=== PATIENT | male | born 1970 | race Hispanic/Latino ===

== ENCOUNTER 2018-11-11 19:44 | Inpatient (IN) | payer OTHER ==
--- NOTE | 2018-11-11 20:12 | ED PDOC ---
HPI: Headache Time Seen by Provider: 11/11/18 20:05 Chief Complaint (Nursing): Weakness/Neurological Deficit Chief Complaint (Provider): Right sided headache History Per: Patient History/Exam Limitations: no limitations Onset/Duration Of Symptoms: Hrs Current Symptoms Are (Timing): Still Present Quality: "Pain" Preceeding Symptoms: Visual Disturbances Associated Symptoms: Blurred Vision. denies: Photophobia, Nausea, Vomiting, Extremity Weakness Additional History Per: Patient Additional Complaint(s): 48yo male with history of migraines, with last episode 10 years ago, reports a gradual right sided headache radiating to his right neck. Patient reports blurry vision while on his way here, which has now resolved. He denies any extremity weakness, numbness or tingling. He took Advil with no relief of symptoms. Patient states he smokes and that he had 2 drinks this evening, states this is not unusual. No nausea, vomiting, or other complaints. NIHSS Stroke Scale - Date/Time Evaluation Performed Date Performed: 11/11/18 Time Performed: 20:10 When Was NIHSS Performed: Baseline - How Severe is the Stroke Level of Consciousness: 0=Alert LOC to Questions: 0=Both comments correct LOC to commands: 0=Obeys both correctly Best Gaze: 0=Normal Visual: 0=No visual loss Facial: 0=Normal Motor Arm - Left: 0=No drift Motor Arm - Right: 0=No drift Motor Leg - Left: 0=No drift Motor Leg - Right: 0=No drift Limb Ataxia: 0=Absent Sensory: 0=Normal Best Language: 0=No aphasia Dysarthia: 0=Normal articulation Extinction & Inattention (Neglect): 0=Normal, no object Score: 0 Past Medical History Reviewed: Historical Data, Nursing Documentation, Vital Signs Vital Signs: Last Vital Signs Temp 97.9 F 11/11/18 19:49 Pulse 70 11/11/18 19:49 Resp 16 11/11/18 19:49 BP 150/90 11/11/18 19:49 Pulse Ox 97 11/11/18 19:49 Primary Care Provider: Dillan Valenzuela - Medical History PMH: Migraine (last 10 years ago) - Surgical History Surgical History: Tonsillectomy - Family History Family History: States: No Known Family Hx - Social History Current smoker - smoking cessation education provided: Yes Alcohol: Occasional Drugs: Denies - Home Medications Home Medications: Ambulatory Orders Medication Instructions Recorded No Known Home Med 11/12/18 - Allergies Allergies/Adverse Reactions: Allergies Allergy/AdvReac Type Severity Reaction Status Date / Time No Known Allergies Allergy Verified 11/11/18 19:49 Review of Systems ROS Statement: Except As Marked, All Systems Reviewed And Found Negative Constitutional: Negative for: Weakness Eyes: Positive for: Vision Change (now resolved) Gastrointestinal: Negative for: Nausea Musculoskeletal: Positive for: Neck Pain (right sided) Neurological: Positive for: Numbness (right sided facial numbness), Headache (right sided). Negative for: Weakness Physical Exam - Reviewed Nursing Documentation Reviewed: Yes Vital Signs Reviewed: Yes - Physical Exam Appears: Positive for: Non-toxic Head Exam: Positive for: ATRAUMATIC, NORMAL INSPECTION, NORMOCEPHALIC Skin: Positive for: Normal Color Eye Exam: Positive for: EOMI, PERRL Neck: Positive for: Normal, Painless ROM, Supple Cardiovascular/Chest: Positive for: Regular Rate, Rhythm. Negative for: Tachycardia Respiratory: Positive for: Normal Breath Sounds. Negative for: Respiratory Distress Gastrointestinal/Abdominal: Positive for: Soft Back: Positive for: Normal Inspection Extremity: Positive for: Normal ROM. Negative for: Pedal Edema, Deformity Neurological/Psych: Positive for: Awake, Alert, Normal Tone, Symmetric/Intact Strength, Oriented (x 3), technical support agent II-XII (intact). Negative for: Motor/Sensory Deficits, Facial Droop - Laboratory Results Result Diagrams: 11/11/18 20:10 11/11/18 20:10 - ECG O2 Sat by Pulse Oximetry: 97 (RA) Pulse Ox Interpretation: Normal Medical Decision Making Medical Decision Making: Impression: Headache Plan: -- Labs -- CT Head w/o contrast -- CTA Head and Neck -- Morphine 2mg IV -- Urinalysis -- EKG EXAM: CT Head Without IV contrast. CLINICAL HISTORY: Rt sided headache TECHNIQUE: Axial computed tomography images of the head/brain without intravenous contrast. COMPARISON: None provided. FINDINGS: BRAIN: No acute intraparenchymal hemorrhage. No mass lesion. No CT evidence for acute territorial infarct. No midline shift or extra-axial collections. VENTRICLES: No hydrocephalus. ORBITS: The orbits are unremarkable. SINUSES AND MASTOIDS: The paranasal sinuses and mastoid air cells are clear. BONES: 5 mm lytic lesion is present in the right frontal calvarium. Consider further workup with MRI of the brain pre-and post contrast as well as CT of the chest abdomen pelvis with IV contrast. SOFT TISSUES: Unremarkable. IMPRESSION: No acute intracranial abnormality. 5 mm lytic lesion is present in the right frontal calvarium. Consider further workup with MRI of the brain pre-and post contrast as well as CT of the chest abdomen pelvis with IV contrast. Electronically signed on November 11, 2018 8:39:09 PM EDT by: Dillan Ibrahim M.D., M.B.A., Certified By [employer] Trained MRI and CT Specialist EXAM: CTA Head and Neck with Intravenous Contrast. CLINICAL HISTORY: Rt sided headache TECHNIQUE: Axial CTA images of the head and neck performed with intravenous contrast. MIP reconstructed images were created and reviewed. 496.94 mGy-cm CONTRAST: With; [id number] 95ml was injected intravenously without incident. COMPARISON: None provided. FINDINGS: VASCULATURE: NECK: COMMON CAROTID ARTERIES No significant canal stenosis. No dissection or occlusion. EXTERNAL CAROTID ARTERIES Patent. NECK: INTERNAL CAROTID ARTERIES No stenosis by NASCET criteria. No dissection or occlusion. VERTEBRAL ARTERIES No significant canal stenosis. No dissection or occlusion. HEAD: ANTERIOR CEREBRAL ARTERIES No significant stenosis. No occlusion. No aneurysm. MIDDLE CEREBRAL ARTERIES No significant stenosis. No occlusion. No aneurysm. POSTERIOR CEREBRAL ARTERIES No significant stenosis. No occlusion. No aneurysm. BASILAR ARTERY No significant stenosis. No occlusion. No aneurysm. OTHER: 4 x 2.5 cm heterogeneously enhancing left thyroid lobe mass is seen demonstrating internal nodular components. This is status for thyroid malignancy. Surgical consultation is recommended. SOFT TISSUES No acute finding. BONES No acute osseous abnormality. IMPRESSION: 4 x 2.5 cm heterogeneously enhancing left thyroid lobe mass is seen demonstrating internal nodular components. This is status for thyroid malignancy. Surgical consultation is recommended. Unremarkable CTA of the head and neck otherwise. Electronically signed on November 11, 2018 10:12:17 PM EDT by: Dillan Ibrahim M.D., M.B.A., Certified By [employer] Trained MRI and CT Specialist CT OF THE CHEST ABDOMEN AND PELVIS WITH IV CONTRAST CLINICAL HISTORY: Abnormal ct head, lytic lesion calvarium TECHNIQUE: Axial and reformatted sagittal and coronal images of the chest, abdomen and pelvis obtained after bolus IV contrast administration. FINDINGS: 2.6x1.9 cm heterogeneous hypodense nodule of the left thyroid lobe. Mild right lateral deviation of the trachea. No secondary tracheal narrowing. Bilateral basilar subsegmental atelectatic pulmonary changes. Normal enhancement of the main pulmonary artery and right and left pulmonary arteries. Normal enhancement of the bilateral peripheral pulmonary arteries. There is no demonstrated pulmonary embolism. Normal thoracic aorta and visualized great vessels. There is no demonstrated aortic dissection. Normal heart and pericardium. Normal mediastinum. Normal hilar regions. Normal visualized trachea and bronchi. Normal pleura. Normal chest wall structures. Normal liver. Normal gallbladder and extrahepatic biliary system. Normal spleen. Normal pancreas. Normal bilateral adrenal glands. Normal size of the right kidney. There is no right renal mass. There are no right renal calculi. There is no right hydronephrosis. Normal visualized right ureter. Normal size of the left kidney. There is no left renal mass. There are no left renal calculi. There is no left hydronephrosis. Normal visualized left ureter. Normal visualized stomach. Normal small intestine. Uncomplicated diverticulosis of the colon. The appendix is visualized and appears normal. There is no demonstrated peritoneal fluid. Normal abdominal aorta. Normal inferior vena cava. Normal retroperitoneum. Normal urinary bladder. There is no pelvic mass lesion or lymphadenopathy. There is no pelvic fluid. Mild prostatomegaly. Bilateral fat containing inguinal hernias without incarceration. Grade 1 anterolisthesis of L5 on S1 with associated moderate focal spondylosis. IMPRESSION: No demonstrated pulmonary embolism or arterial dissection. 2.6x1.9 cm heterogeneous hypodense nodule of the left thyroid lobe. Ultrasound guided fine needle aspiration is suggested. Mild right lateral deviation of the trachea. No secondary tracheal narrowing. Bilateral basilar subsegmental atelectatic pulmonary changes. Electronically signed on November 12, 2018 3:02:23 AM EDT by: Shaq Worrell M.D., Certified by [employer], Neuroradiology Scribe Attestation: Documented by Padmini Castañeda acting as a scribe for Tova Parks MD Provider Scribe Attestation: All medical record entries made by the Scribe were at my direction and personally dictated by me. I have reviewed the chart and agree that the record accurately reflects my personal performance of the history, physical exam, medical decision making, and the department course for this patient. I have also personally directed, reviewed, and agree with the discharge instructions and disposition. Disposition - Clinical Impression Clinical Impression: Bone lesion, Thyroid mass - Patient ED Disposition Is Patient to be Admitted: Yes - Disposition Disposition Time: 00:00 Condition: STABLE - Pt Status Changed To: Hospital Disposition Of: Inpatient - Admit Certification Admit to Inpatient:: After my assessment, the patient will require hospitalization for at least two midnights. This is because of the severity of symptoms shown, intensity of services needed, and/or the medical risk in this patient being treated as an outpatient. - POA Present On Arrival: None
[2018-11-11 20:34] LABS: BASO # 0.1 K/uL (0.0-0.2); BASO % 0.9 % (0.0-2.0); EOS # 0.1 K/uL (0.0-0.7); EOS % 1.5 % (0.0-4.0); LYMPH # 2.5 K/uL (1.0-4.3); LYMPH % 36.9 % (20.0-40.0); MEAN CELL VOLUME 87.5 fl (80.0-94.0); MEAN CORPUSCULAR HEMOGLOBIN 29.9 pg (27.0-31.0); MEAN CORPUSCULAR HGB CONC 34.1 g/dL (33.0-37.0); MEAN PLATELET VOLUME 8.8 fl (7.2-11.7); MONO # 0.5 K/uL (0.0-0.8); MONO % 7.2 % (0.0-10.0); NEUT # 3.6 K/uL (1.8-7.0); NEUT % 53.5 % (50.0-75.0); NRBC % 0.1 % (0.0-0.0); RBC 5.02 Mil/uL (4.40-5.90); RED CELL DISTRIBUTION WIDTH 12.9 % (11.5-14.5); WHITE BLOOD COUNT 6.8 K/uL (4.8-10.8)
[2018-11-11] MEDS ORDERED: Iodixanol 320 MG/ML 100 ML BOTTLE IV ONE (20:35)
[2018-11-11] MEDS ORDERED: Sodium Chloride 0.9% 50 ML IV ONE (20:36)
[2018-11-11 20:45] LABS: ALB/GLOB RATIO 1.5 (1.0-2.1); ALBUMIN 4.5 g/dL (3.5-5.0); ALT/SGPT 24 U/L (21-72); AST/SGOT 29 U/L (17-59); BLOOD UREA NITROGEN 9 mg/dl (9-20); GFR NON-AFRICAN AMERICAN > 60; PROTHROMBIN TIME 11.8 Seconds (9.8-13.1)
[2018-11-11 20:47] LABS: PARTIAL THROMBOPLASTIN TIME 32.6 Seconds (25.6-37.1)
[2018-11-11] MEDS ORDERED: Sodium Chloride 0.9% 1,000 ML IV STA (23:40)
[2018-11-12] MEDS ORDERED: Iodixanol 320 MG/ML 100 ML BOTTLE IV ONE (01:49)
[2018-11-12] MEDS ORDERED: Sodium Chloride 0.9% 50 ML IV ONE (01:49)
[2018-11-12 04:20] VITALS: RESP 18
[2018-11-12 07:58] VITALS: BP 128/79; PULSE 74; TEMP 98.6
[2018-11-12 10:19] LABS: T3 1.14 nmol/L (1.49-2.60)
--- NOTE | 2018-11-12 10:20 | CT ---
Date of service: 11/12/2018 PROCEDURE: CT Chest, Abdomen and Pelvis with intravenous contrast HISTORY: Abnormal CT head, lytic lesion calvarium COMPARISON: November 11, 2018.. CT head without contrast. TECHNIQUE: IV dose administered: 95 cc Visipaque 320. Radiation dose: Total exam DLP = 1013.03 mGy-cm. This CT exam was performed using one or more of the following dose reduction techniques: Automated exposure control, adjustment of the mA and/or kV according to patient size, and/or use of iterative reconstruction technique. FINDINGS: CT CHEST WITH CONTRAST: LUNGS: Right lower lobe infiltrate, basilar segment. Less pronounced atelectatic changes left lung base. No pulmonary nodules or masses detected. MEDIASTINUM: Unremarkable. Normal caliber aorta and pulmonary arterial trunk. No aortic dissection. Normal size heart. LYMPH NODES: Unremarkable. PLEURA: Unremarkable. No pneumothorax. No pleural fluid. BONES: Unremarkable. OTHER FINDINGS: Cystic nodule left thyroid lobe. Although incompletely visualize, this measures 1.3 x 2.3 cm. Elective thyroid ultrasound recommended. CT ABDOMEN AND PELVIS: LIVER: Unremarkable. No gross lesion or ductal dilatation. Incidental finding(s): 2.3 cm simple cyst left hepatic lobe, segment 2. GALLBLADDER AND BILE DUCTS: Unremarkable. PANCREAS: Unremarkable. No gross lesion or ductal dilatation. SPLEEN: Unremarkable. ADRENALS: Unremarkable. No mass. KIDNEYS AND URETERS: Unremarkable. No hydronephrosis. No solid mass. VASCULATURE: No aortic atherosclerotic calcification or mural plaque present. Unremarkable. No aortic aneurysm. BOWEL: Constipation without fecal impaction or obstruction. APPENDIX: A normal appendix is visualized in it's entirety. PERITONEUM: Unremarkable. No free fluid. No free air. LYMPH NODES: Unremarkable. No enlarged lymph nodes. BLADDER: Unremarkable. REPRODUCTIVE: Unremarkable. BONES: No acute fracture. OTHER FINDINGS: None. IMPRESSION: Bilateral lower lobe infiltrates/atelectasis right greater than left. Indeterminate and incompletely visualize left thyroid nodule. Elective thyroid ultrasound recommended. Simple cyst lateral segment left hepatic lobe. Additional benign and/or incidental findings described above.
--- NOTE | 2018-11-12 11:25 | CP.PCM.CON ---
History of Present Illness - History of Present Illness History of Present Illness: General surgery consult note for Dr. Shae Headley, PGY-2 Pt seen/examined at bedside 48M w/PMH sig for migraines consulted for thyroid mass. Pt admitted to hospital due to right sided CONNELL yesterday after business meeting, with associated numbness and tingling of head/face and right eye blurriness/lacrimation. Denies decrease d strength of body, F & C, SOB, CP, neck pain, dysphagia, changes in weight, changes in bowel or bladder habits, other complaints. CT head/neck with findings of thyroid mass PMH: hx of migraines PSH; Denies All: NKDA SH: Admits to tobacco use - 1/2ppd x 30 yrs, ETOH use 5-10 drinks weekly, occas ional MJ use, no other illicit drug use PMD: Denies Review of Systems - Review of Systems All systems: reviewed and no additional remarkable complaints except - Constitutional Constitutional: absent: Chills, Fever - EENT Eyes: Blurred Vision, Change in Vision Ears: absent: Dizziness Nose/Mouth/Throat: Facial Pain. absent: Dysphagia, Mouth Pain, Sore Throat, Throat Swelling, Neck Mass - Cardiovascular Cardiovascular: absent: Chest Pain - Gastrointestinal Gastrointestinal: absent: Abdominal Pain - Genitourinary Genitourinary: absent: Change in Urinary Stream - Neurological Neurological: absent: Weakness - Psychiatric Psychiatric: absent: Change in Appetite Past Patient History - Past Medical History & Family History Past Medical History?: No - Past Social History Smoking Status: Current Some Days Smoker - CARDIAC Hx Cardiac Disorders: No - PULMONARY Hx Respiratory Disorders: No - NEUROLOGICAL Hx Neurological Disorder: Yes Hx Migraine: Yes (last 10 years ago) - HEENT Hx HEENT Problems: No - RENAL Hx Chronic Kidney Disease: No - ENDOCRINE/METABOLIC Hx Endocrine Disorders: No - HEMATOLOGICAL/ONCOLOGICAL Hx Blood Disorders: No - INTEGUMENTARY Hx Dermatological Problems: No - MUSCULOSKELETAL/RHEUMATOLOGICAL Hx Musculoskeletal Disorders: No Hx Falls: No - GASTROINTESTINAL Hx Gastrointestinal Disorders: No - GENITOURINARY/GYNECOLOGICAL Hx Genitourinary Disorders: No - PSYCHIATRIC Hx Psychophysiologic Disorder: No Hx Substance Use: No - SURGICAL HISTORY Hx Surgeries: Yes Hx Tonsillectomy: Yes - ANESTHESIA Hx Anesthesia: No Meds Allergies/Adverse Reactions: Allergies Allergy/AdvReac Type Severity Reaction Status Date / Time No Known Allergies Allergy Verified 11/11/18 19:49 Physical Exam - Constitutional Appears: Non-toxic, No Acute Distress - Head Exam Head Exam: ATRAUMATIC, NORMAL INSPECTION, NORMOCEPHALIC - Eye Exam Eye Exam: EOMI, Normal appearance - ENT Exam ENT Exam: Mucous Membranes Moist, Normal Exam - Neck Exam Neck exam: Positive for: Full Rom, Normal Inspection. Negative for: Lymphadenopathy, Tenderness, Thyromegaly - Respiratory Exam Respiratory Exam: Clear to Auscultation Bilateral, NORMAL BREATHING PATTERN. absent: Rales, Rhonchi, Wheezes, Respiratory Distress - Cardiovascular Exam Cardiovascular Exam: REGULAR RHYTHM, +S1, +S2 - GI/Abdominal Exam GI & Abdominal Exam: Normal Bowel Sounds, Soft. absent: Tenderness - Back Exam Back exam: NORMAL INSPECTION - Neurological Exam Neurological exam: Alert, CN II-XII Intact, Oriented x3 - Psychiatric Exam Psychiatric exam: Normal Affect, Normal Mood - Skin Skin Exam: Dry, Intact, Normal Color, Warm Results - Vital Signs Recent Vital Signs: Last Vital Signs Temp 98.6 F 11/12/18 07:57 Pulse 74 11/12/18 07:57 Resp 18 11/12/18 07:57 BP 128/79 11/12/18 07:57 Pulse Ox 96 11/12/18 07:57 - Labs Result Diagrams: 11/11/18 20:10 11/11/18 20:10 Labs: Laboratory Results - last 24 hr 11/11/18 11/11/18 11/11/18 20:08 20:10 20:10 WBC 6.8 RBC 5.02 Hgb 15.0 Hct 43.9 MCV 87.5 MCH 29.9 MCHC 34.1 RDW 12.9 Plt Count 266 MPV 8.8 Neut % (Auto) 53.5 Lymph % (Auto) 36.9 [place] % (Auto) 7.2 Eos % (Auto) 1.5 Baso % (Auto) 0.9 Neut # (Auto) 3.6 Lymph # (Auto) 2.5 [place] # (Auto) 0.5 Eos # (Auto) 0.1 Baso # (Auto) 0.1 PT INR APTT Sodium 139 Potassium 3.7 Chloride 101 Carbon Dioxide 26 Anion Gap 16 BUN 9 Creatinine 0.9 Est GFR ( Amer) > 60 Est GFR (Non-Af Amer) > 60 POC Glucose (mg/dL) 86 Random Glucose 82 Calcium 9.0 Total Bilirubin 0.9 AST 29 ALT 24 Alkaline Phosphatase 42 Total Protein 7.5 Albumin 4.5 Globulin 3.0 Albumin/Globulin Ratio 1.5 Thyroxine (T4) 7.60 Total T3 1.14 L TSH 3rd Generation 0.41 L 11/11/18 20:10 WBC RBC Hgb Hct MCV MCH MCHC RDW Plt Count MPV Neut % (Auto) Lymph % (Auto) [place] % (Auto) Eos % (Auto) Baso % (Auto) Neut # (Auto) Lymph # (Auto) [place] # (Auto) Eos # (Auto) Baso # (Auto) PT 11.8 INR 1.0 APTT 32.6 Sodium Potassium Chloride Carbon Dioxide Anion Gap BUN Creatinine Est GFR ( Amer) Est GFR (Non-Af Amer) POC Glucose (mg/dL) Random Glucose Calcium Total Bilirubin AST ALT Alkaline Phosphatase Total Protein Albumin Globulin Albumin/Globulin Ratio Thyroxine (T4) Total T3 TSH 3rd Generation Assessment & Plan - Assessment and Plan (Free Text) Assessment: 48M w/thyroid mass incidentally found on imaging Plan: T3 low - 1.14 TSH low - 0.41 T4 WNL- 7.6 Recommend U/S of thyroid Will need FNA for tissue diagnosis- can be done outpatient To follow up with Dr. Marin after FNA and U/S of thyroid done for further surgical planning Will DW Dr. Tomas Headley, PGY-2 - Date & Time Date: 11/12/18 Time: 10:15
--- NOTE | 2018-11-12 11:27 | CARD ---
APPROVED REPORT Date of service: 11/11/2018 EKG Measurement Heart [id number] <Conclusion> Sinus bradycardia Otherwise normal ECG
--- NOTE | 2018-11-12 12:40 | CT ---
Date of service: 11/11/2018 PROCEDURE: CT HEAD WITHOUT CONTRAST. HISTORY: R sided CONNELL COMPARISON: None available. TECHNIQUE: Axial computed tomography images were obtained through the head/brain without intravenous contrast. Radiation dose: Total exam DLP = 794.4 mGy-cm. This CT exam was performed using one or more of the following dose reduction techniques: Automated exposure control, adjustment of the mA and/or kV according to patient size, and/or use of iterative reconstruction technique. FINDINGS: HEMORRHAGE: No intracranial hemorrhage. BRAIN: No mass effect or edema. Vargas-white matter differentiation appears intact. Please note that MRI with diffusion imaging is more sensitive in the detection of acute ischemic event. VENTRICLES: No hydrocephalus. CALVARIUM: 5 mm lucent/lytic lesion within the right frontal calvarium. PARANASAL SINUSES: Unremarkable as visualized. No significant inflammatory changes. MASTOID AIR CELLS: Unremarkable as visualized. No inflammatory changes. OTHER FINDINGS: None. IMPRESSION: No acute intracranial pathology identified. 5 mm lucent/lytic lesion within the right frontal calvarium. Preliminary impression was provided by [place].
--- NOTE | 2018-11-12 12:50 | CT ---
Date of service: 11/11/2018 PROCEDURE: CT Angiography of the Head and Neck. HISTORY: R sided CONNELL COMPARISON: None available. TECHNIQUE: CT angiography of the head and neck was performed following intravenous contrast administration. Coronal and sagittal maximum intensity projection reformatted images were generated. Contrast Dose: Visipaque 320, 95 cc Radiation dose: Total exam DLP = 496.94 mGy-cm. This CT exam was performed using one or more of the following dose reduction techniques: Automated exposure control, adjustment of the mA and/or kV according to patient size, and/or use of iterative reconstruction technique. FINDINGS: INTERNAL CEREBRAL ARTERIES: Unremarkable. The skull base, petrous, cavernous and supraclinoid segments are bilaterally widely patent. ANTERIOR CEREBRAL ARTERIES: Hypoplastic left A1 REYNALDO segment with remainder of bilateral anterior cerebral arteries otherwise normal in caliber. Smaller distal branches unremarkable, as visualized. MIDDLE CEREBRAL ARTERIES: Unremarkable. M1 and M2 segments are widely patent. Perisylvian branches grossly symmetric. POSTERIOR CIRCULATION: Basilar Artery: Unremarkable. Distal Vertebral Arteries: Balance vertebrobasilar circulation. Posterior Cerebral Arteries: Unremarkable. Posterior Inferior Cerebellar Arteries: Unremarkable. NECK CTA: Aortic Arch: Normal three vessel arch identified. Common Carotid arteries: The bilateral common carotid appear widely patent from their origins to their bifurcations with no significant stenosis appreciated. No evidence to suggest common carotid artery dissection. Internal Carotid arteries: No significant stenosis is appreciated throughout the cervical internal carotid artery segments bilaterally and there is no evidence of dissection either. External Carotid arteries: Appear unremarkable bilaterally. Vertebral arteries: The bilateral vertebral arteries appear normal in caliber from their origins to their distal cervical segments. No significant stenosis or definite pattern of dissection. ANEURYSM/ VASCULAR MALFORMATIONS: None. OTHER FINDINGS: None. IMPRESSION: 1. No large vessel occlusion or significant stenosis demonstrated by CT angiography of the brain. No definite aneurysm or arteriovascular malformation identified either. Patent but hypoplastic left A1 REYNALDO. 2. No significant stenosis bilateral common or internal carotid or bilateral vertebral arteries. 3. Three vessel aortic arch appreciated.
--- NOTE | 2018-11-12 13:21 | MRI ---
Date of service: 11/12/2018 PROCEDURE: MRI BRAIN WITHOUT CONTRAST HISTORY: Lytic lesion R frontal calvrium COMPARISON: None available. TECHNIQUE: Multiplanar, multisequence MR images of the brain were obtained without intravenous contrast enhancement. FINDINGS: HEMORRHAGE: None DWI: No evidence of an acute or early subacute infarction. BRAIN PARENCHYMA: Intrinsic signal throughout the garcias and white matter structures above below the tentorium appears within normal limits including the brainstem. There is no mass effect, parenchymal edema or loss of the corticomedullary differentiation. Midline brain anatomy appears within normal limits including the corpus callosum, brainstem and craniocervical junction. There is no suspicious extra-axial fluid collection identified. VENTRICLES: Unremarkable. No hydrocephalus. CRANIUM: The inner table defect at the right frontal bone is barely visible by MRI with no definite edema associated and may reflect a venous frausto rather than true aggressive lytic lesion. ORBITS: Grossly unremarkable. PARANASAL SINUSES/MASTOIDS: Clear VASCULAR SYSTEM: Skull base flow voids intact. OTHER FINDINGS: None. IMPRESSION: Unremarkable non contrast enhanced MRI of the brain. Possible venous frausto right frontal bone. If clinical concern for lytic lesion at the right frontal bone then consider follow-up nuclear bone scan with special attention to the calvarium.
--- NOTE | 2018-11-12 15:22 | CP.PCM.CON ---
History of Present Illness - History of Present Illness History of Present Illness: Neurology consult dictated. Mr. Read is a 48 yr old male with normal MRI brain, normal CTA head and neck except for moderately large thyroid mass, who presents with sharp right face and eye pain wiht numbness and blurriness of vision, resolving in 3 hours. Exam is normal. A/p: Patient with either trigeminal neuralgia, cluster headache, or atypical migraine. PlaN; 1. stabel for discharge. 2. Migraine treatment and prevention discussed. dr. alcantar Neurology Past Patient History - Past Medical History & Family History Past Medical History?: No - Past Social History Smoking Status: Current Some Days Smoker - CARDIAC Hx Cardiac Disorders: No - PULMONARY Hx Respiratory Disorders: No - NEUROLOGICAL Hx Neurological Disorder: Yes Hx Migraine: Yes (last 10 years ago) - HEENT Hx HEENT Problems: No - RENAL Hx Chronic Kidney Disease: No - ENDOCRINE/METABOLIC Hx Endocrine Disorders: No - HEMATOLOGICAL/ONCOLOGICAL Hx Blood Disorders: No - INTEGUMENTARY Hx Dermatological Problems: No - MUSCULOSKELETAL/RHEUMATOLOGICAL Hx Musculoskeletal Disorders: No Hx Falls: No - GASTROINTESTINAL Hx Gastrointestinal Disorders: No - GENITOURINARY/GYNECOLOGICAL Hx Genitourinary Disorders: No - PSYCHIATRIC Hx Psychophysiologic Disorder: No Hx Substance Use: No - SURGICAL HISTORY Hx Surgeries: Yes Hx Tonsillectomy: Yes - ANESTHESIA Hx Anesthesia: No Meds Allergies/Adverse Reactions: Allergies Allergy/AdvReac Type Severity Reaction Status Date / Time No Known Allergies Allergy Verified 11/11/18 19:49 Results - Vital Signs Recent Vital Signs: Last Vital Signs Temp 98.6 F 11/12/18 07:57 Pulse 74 11/12/18 07:57 Resp 18 11/12/18 07:57 BP 128/79 11/12/18 07:57 Pulse Ox 96 11/12/18 07:57 - Labs Result Diagrams: 11/11/18 20:10 11/11/18 20:10 Labs: Laboratory Results - last 24 hr 11/11/18 11/11/18 11/11/18 20:08 20:10 20:10 WBC 6.8 RBC 5.02 Hgb 15.0 Hct 43.9 MCV 87.5 MCH 29.9 MCHC 34.1 RDW 12.9 Plt Count 266 MPV 8.8 Neut % (Auto) 53.5 Lymph % (Auto) 36.9 [place] % (Auto) 7.2 Eos % (Auto) 1.5 Baso % (Auto) 0.9 Neut # (Auto) 3.6 Lymph # (Auto) 2.5 [place] # (Auto) 0.5 Eos # (Auto) 0.1 Baso # (Auto) 0.1 PT INR APTT Sodium 139 Potassium 3.7 Chloride 101 Carbon Dioxide 26 Anion Gap 16 BUN 9 Creatinine 0.9 Est GFR ( Amer) > 60 Est GFR (Non-Af Amer) > 60 POC Glucose (mg/dL) 86 Random Glucose 82 Calcium 9.0 Total Bilirubin 0.9 AST 29 ALT 24 Alkaline Phosphatase 42 Total Protein 7.5 Albumin 4.5 Globulin 3.0 Albumin/Globulin Ratio 1.5 Thyroxine (T4) 7.60 Total T3 1.14 L TSH 3rd Generation 0.41 L 11/11/18 20:10 WBC RBC Hgb Hct MCV MCH MCHC RDW Plt Count MPV Neut % (Auto) Lymph % (Auto) [place] % (Auto) Eos % (Auto) Baso % (Auto) Neut # (Auto) Lymph # (Auto) [place] # (Auto) Eos # (Auto) Baso # (Auto) PT 11.8 INR 1.0 APTT 32.6 Sodium Potassium Chloride Carbon Dioxide Anion Gap BUN Creatinine Est GFR ( Amer) Est GFR (Non-Af Amer) POC Glucose (mg/dL) Random Glucose Calcium Total Bilirubin AST ALT Alkaline Phosphatase Total Protein Albumin Globulin Albumin/Globulin Ratio Thyroxine (T4) Total T3 TSH 3rd Generation
--- NOTE | 2018-11-12 17:55 | CP.PCM.HP ---
History of Present Illness - History of Present Illness History of Present Illness: 48 yo admitted for facial pain with blurring vision Past Patient History - Past Medical History & Family History Past Medical History?: No - Past Social History Smoking Status: Current Some Days Smoker - CARDIAC Hx Cardiac Disorders: No - PULMONARY Hx Respiratory Disorders: No - NEUROLOGICAL Hx Neurological Disorder: Yes Hx Migraine: Yes (last 10 years ago) - HEENT Hx HEENT Problems: No - RENAL Hx Chronic Kidney Disease: No - ENDOCRINE/METABOLIC Hx Endocrine Disorders: No - HEMATOLOGICAL/ONCOLOGICAL Hx Blood Disorders: No - INTEGUMENTARY Hx Dermatological Problems: No - MUSCULOSKELETAL/RHEUMATOLOGICAL Hx Musculoskeletal Disorders: No Hx Falls: No - GASTROINTESTINAL Hx Gastrointestinal Disorders: No - GENITOURINARY/GYNECOLOGICAL Hx Genitourinary Disorders: No - PSYCHIATRIC Hx Psychophysiologic Disorder: No Hx Substance Use: No - SURGICAL HISTORY Hx Surgeries: Yes Hx Tonsillectomy: Yes - ANESTHESIA Hx Anesthesia: No Meds Allergies/Adverse Reactions: Allergies Allergy/AdvReac Type Severity Reaction Status Date / Time No Known Allergies Allergy Verified 11/11/18 19:49 Physical Exam - Respiratory Exam Respiratory Exam: NORMAL BREATHING PATTERN - Cardiovascular Exam Cardiovascular Exam: REGULAR RHYTHM - GI/Abdominal Exam GI & Abdominal Exam: Normal Bowel Sounds Results - Vital Signs Recent Vital Signs: Last Vital Signs Temp 98.6 F 11/12/18 07:57 Pulse 74 11/12/18 07:57 Resp 18 11/12/18 07:57 BP 128/79 11/12/18 07:57 Pulse Ox 96 11/12/18 07:57 - Labs Result Diagrams: 11/11/18 20:10 11/11/18 20:10 Labs: Laboratory Results - last 24 hr 11/11/18 11/11/18 11/11/18 20:08 20:10 20:10 WBC 6.8 RBC 5.02 Hgb 15.0 Hct 43.9 MCV 87.5 MCH 29.9 MCHC 34.1 RDW 12.9 Plt Count 266 MPV 8.8 Neut % (Auto) 53.5 Lymph % (Auto) 36.9 [place] % (Auto) 7.2 Eos % (Auto) 1.5 Baso % (Auto) 0.9 Neut # (Auto) 3.6 Lymph # (Auto) 2.5 [place] # (Auto) 0.5 Eos # (Auto) 0.1 Baso # (Auto) 0.1 PT INR APTT Sodium 139 Potassium 3.7 Chloride 101 Carbon Dioxide 26 Anion Gap 16 BUN 9 Creatinine 0.9 Est GFR ( Amer) > 60 Est GFR (Non-Af Amer) > 60 POC Glucose (mg/dL) 86 Random Glucose 82 Calcium 9.0 Total Bilirubin 0.9 AST 29 ALT 24 Alkaline Phosphatase 42 Total Protein 7.5 Albumin 4.5 Globulin 3.0 Albumin/Globulin Ratio 1.5 Thyroxine (T4) 7.60 Total T3 1.14 L TSH 3rd Generation 0.41 L 11/11/18 20:10 WBC RBC Hgb Hct MCV MCH MCHC RDW Plt Count MPV Neut % (Auto) Lymph % (Auto) [place] % (Auto) Eos % (Auto) Baso % (Auto) Neut # (Auto) Lymph # (Auto) [place] # (Auto) Eos # (Auto) Baso # (Auto) PT 11.8 INR 1.0 APTT 32.6 Sodium Potassium Chloride Carbon Dioxide Anion Gap BUN Creatinine Est GFR ( Amer) Est GFR (Non-Af Amer) POC Glucose (mg/dL) Random Glucose Calcium Total Bilirubin AST ALT Alkaline Phosphatase Total Protein Albumin Globulin Albumin/Globulin Ratio Thyroxine (T4) Total T3 TSH 3rd Generation Assessment & Plan - Assessment and Plan (Free Text) Assessment: R facial neck pain trigeminal neuralgia, cluster headache, or atypical migraine CT scan Head lytic lesion?? Thyroid??
[2018-11-14 19:07] VITALS: O2SAT 97
== END 2018-11-12 13:42 | disposition left against medical advice (07) | DRG 74 ==
LOC: H.ER 19:44 → H.ERHOLD 11-12 01:00 → H.MEDSURG1 11-12 03:56
PROVIDERS: ADMIT Family Medicine Geriatric Medicine; ATTEND Family Medicine Geriatric Medicine
DX: G50.0 Trigeminal neuralgia (principal); E07.9 Disorder of thyroid, unspecified; F17.200 Nicotine dependence, unspecified, uncomplicated; G43.009 Migraine without aura, not intractable, without status migrainosus; G44.009 Cluster headache syndrome, unspecified, not intractable